=== PATIENT | female | born 1960 | race Two or more races ===

== ENCOUNTER 2021-06-01 13:55 | Emergency (ER) | payer OTHER, SELFPAY ==
[2021-06-01 14:48] VITALS: BP 147/99; PULSE 101; RESP 18; TEMP 36.6; O2SAT 97; BMI 21.7
--- NOTE | 2021-06-01 17:24 | ED.GENADULT ---
HPI - General Adult General Chief complaint: Abdominal Pain Stated complaint: abd pain Time Seen by Provider: 06/01/21 17:05 Source: patient Mode of arrival: ambulatory Limitations: no limitations History of Present Illness HPI narrative: 60 y/o female presenting to the ER with 3 days of increased gas. She reports increased belching and rectal flatulance. She has a history of similar episodes or flares of this and was given a prescription for a purple pill that helped her. She has taken Pepto-Bismol with some improvement. She has not been taking it consistently. She also reports increased abdominal bloating and early satiety. She has occasional cramping but no abdominal pain, no nausea, no vomiting, no diarrhea. She had normal bowel movement today and yesterday. No blood in her stool. She has never had a colonoscopy. She also suffers from constipation however has been having normal bowel movements. She cannot recall any new foods. She states she has not been eating much because of the gas and bloating. MD complaint: Excessive abdominal gas Onset (ago): day(s) (3) Location: abdomen Radiation: non-radiation Severity: moderate Quality: other (Fullness) Pain Consistency: intermittent Relieving factors: none Exacerbating factors: eating Associated symptoms: loss of appetite Treatments prior to arrival: none Related Data Previous Rx's Medication Instructions Recorded simethicone 180 mg capsule (Gas 180 mg PO BID #30 cap 06/01/21 Relief (simethicone)) Allergies Allergy/AdvReac Type Severity Reaction Status Date / Time No Known Allergies Allergy Verified 06/01/21 14:48 Review of Systems Review of Systems: Constitutional: No Fever, No Chills ENT/Mouth: No sore throat, No Swallowing Difficulty Cardiovascular: No Chest Pain, No SOB Respiratory: No Cough, No Sputum, No Wheezing, No dyspnea Gastrointestinal: No Nausea, No Vomiting, No Diarrhea, No abdominal Pain, No Hematochezia, No Melena, +early satiety, + abdominal bloating and gas Genitourinary: No Dysuria, No Urinary Frequency, No Hematuria Musculoskeletal: No joint pain, No Myalgias Skin: No Skin Lesions, No rash Neuro: No Weakness, No Numbness, No Dizziness, No Headache Psych: No Anxiety/Panic, No Depression Heme/Lymph: No Bruising, No Lymphadenopathy Endocrine: No Polyuria, No Polydipsia PMFSH Social History Social History Patient Tobacco Use Status: Never used Tobacco Use of substances other than those prescribed or required for medical reasons: No Advance Directives: No Advance Directives Information Provided: No Patient : No Physical Exam Vital Signs: Vital Signs: Last Vital Signs Temp 98.8 F 06/01/21 17:28 Pulse 99 06/01/21 17:28 Resp 16 06/01/21 17:28 BP 157/99 H 06/01/21 17:28 Pulse Ox 99 06/01/21 17:28 Body Mass Index 21.7 Appearance: Alert. Oriented X3. No acute distress. Eyes: Pupils equal, round and reactive to light. ENT: Pharynx normal. Neck: Normal inspection. Neck supple. CVS: Normal heart rate and rhythm. Pulses normal. Respiratory: No respiratory distress. Breath sounds normal. Abdomen: Soft and nontender. normal +BS x4, nondistneded. Skin: Skin warm and dry. Normal skin color. Normal skin turgor. No rashes. Extremities: No lower extremity edema. Neuro: Oriented X 3. No motor deficit. No sensory deficit. Course Course Course Narrative: Denied year old female with a history of gas and constipation comes to the ER with reports of excessive belching and rectal fluctuance for the last 3 days. She has been taking Pepto-Bismol with brief improvement. Her abdominal exam is benign. No signs of obstruction. Her labs are unremarkable and her urine is negative for infection. At this time she is stable for discharge home with supportive care, will give a prescription for simethicone. Encouraged to take Pepto-Bismol as needed. Encourage follow-up with GI as she has never had a colonoscopy before. Patient expressed understanding and is agreeable with plan. Stable for [place] home Medical Decision Making Lab Data Result diagrams: 06/01/21 17:27 06/01/21 17:27 Labs: Lab Results 06/01/21 06/01/21 06/01/21 Range/Units 17:27 17:27 17:37 WBC 4.4 L (4.8-10.8) X10*3/uL RBC 4.99 (4.20-5.50) X10*6/uL Hgb 13.9 (12.0-16.0) g/dl Hct 43.6 (37.0-47.0) % MCV 87.4 (80.0-98.0) fL MCH 27.9 (27.0-33.0) pg MCHC 31.9 (31.0-35.0) g/dl RDW 13.2 (11.0-16.0) % Plt Count 270 (160-400) X10*3/uL MPV 9.3 L (9.4-12.3) fL Immature Gran % (Auto) 0.2 (0.0-0.4) % Neut % (Auto) 48.3 (45-73) % Lymph % (Auto) 38.6 (20-40) % [place] % (Auto) 12.4 H (2-11) % Eos % (Auto) 0.0 (0-4) % Baso % (Auto) 0.5 (0-2) % Lymph # (Auto) 1.7 (1.2-4.9) X10*3/uL [place] # (Auto) 0.5 (0.1-1.2) X10*3/uL Eos # (Auto) 0.0 (0.0-0.4) X10*3/uL Baso # (Auto) 0.0 (0.0-0.2) X10*3/uL Abs Immat Gran (auto) 0.01 (0.00-0.03) X10*3/uL Absolute Neuts (auto) 2.1 (2.0-8.3) x10*3/uL Absolute Nucleated RBC 0.000 (0.0-0.012) X10*3/uL Nucleated RBC % (auto) 0.0 (0.0-0.2) /100WBC Sodium 137 (135-145) mmol/L Potassium 3.9 (3.3-5.1) mmol/L Chloride 102 (96-108) mmol/L Carbon Dioxide 26 (22-29) mmol/L Anion Gap 13 (12-20) BUN 8 L (9-16) mg/dL Creatinine 0.81 (0.5-1.4) mg/dL Estim Creat Clear Calc 56.4 Estimated GFR > 60 Random Glucose 105 (60-115) mg/dL Calcium 9.1 (8.4-10.2) mg/dL Total Bilirubin 0.2 (0.0-1.0) mg/dL AST 39 H (5-31) U/L ALT 26 (0-31) U/L Alkaline Phosphatase 93 (39-117) U/L Total Protein 8.4 H (6.5-8.0) g/dL Albumin 4.3 (3.5-5.0) g/dL Lipase 32 (8-78) U/L Urine Color YELLOW Urine Appearance CLEAR Urine pH 6.0 (5.0-8.0) Ur Specific [place] >= 1.030 H (1.005-1.025) Urine Protein 1+ H (NEG-TRACE) MG/DL Urine Glucose (UA) NEG (NEG) MG/DL Urine Ketones 15 (NEG) MG/DL Urine Blood TRACE (NEG) Urine Nitrite NEG (NEG) Ur Leukocyte Esterase NEG (NEG) Urine RBC 1-4 (0) /HPF Urine WBC 0 (0-4) /HPF Ur Squamous Epith Cells TRACE /LPF Ur Renal Epithelial Cell TRACE /LPF Urine Bacteria TRACE /LPF Urine Mucus 1+ /LPF Critical Care Time Critical Care Time Critical Care Time: No Discharge Plan Discharge Clinical Impression: Excessive gas Patient Disposition: Home, Self-Care Instructions: Gas and Bloating (ED), How to Avoid and Decrease Problems with Gas (DC) Additional Instructions: Your labs and urine tests were unremarkable today. Recommend taking Pepto-Bismol 2 times a day for the next couple of days. Take the prescribed medication for gas and bloating. Recommend keeping a food diary to monitor if there is any correlation with your specific foods to your gas. Follow-up with your doctor. Recommend following up with GI doctor given you have never had a colonoscopy before. If you develop new or worsening symptoms call 911 or come back to the ER for further evaluation. Katya an?lisis de laboratorio y de orina no fueron notables hoy. Recomiende arnaud Pepto-Bismol 2 veces al d?a rodger los pr?ximos d?as. [place] el medicamento recetado para los gases y la hinchaz?n. Recomiende llevar un diario de alimentos para controlar si existe alguna correlaci?n entre katya alimentos espec?ficos y bryant gas. Marc un seguimiento con bryant m?dico. Recomiende realizar un seguimiento con un m?dico gastrointestinal, dado que nunca antes se díaz sometido a qasim colonoscopia. Si presenta s?ntomas nuevos o que empeoran, llame al 911 o regrese a la jona de emergencias para qasim evaluaci?n adicional. Prescriptions: New simethicone [Gas Relief (simethicone)] 180 mg capsule 180 mg PO BID Qty: 30 RF: 0 Print Language: Japanese
[2021-06-01 17:28] VITALS: BP 157/99; PULSE 99; RESP 16; TEMP 37.1; O2SAT 99
[2021-06-01 17:33] LABS: Basophils Percent Auto 0.5 % (0-2); Hematocrit 43.6 % (37.0-47.0); Hemoglobin 13.9 g/dl (12.0-16.0); Imm Gran Abs Auto 0.01 X10*3/uL (0.00-0.03); Imm Gran Pct Auto 0.2 % (0.0-0.4); Lymphocytes Absolute Auto 1.7 X10*3/uL (1.2-4.9); Lymphocytes Percent Auto 38.6 % (20-40); MANUAL DIFF FLAG NO; Mean Corpuscular HGB Conc 31.9 g/dl (31.0-35.0); Mean Corpuscular Hemoglobin 27.9 pg (27.0-33.0); Mean Corpuscular Volume 87.4 fL (80.0-98.0); Mean Platelet Volume 9.3 fL (9.4-12.3); Monocytes Absolute Auto 0.5 X10*3/uL (0.1-1.2); Monocytes Percent Auto 12.4 % (2-11); Neutrophils Absolute Auto 2.1 x10*3/uL (2.0-8.3); Neutrophils Percent Auto 48.3 % (45-73); Platelet Count 270 X10*3/uL (160-400); Red Blood Count 4.99 X10*6/uL (4.20-5.50); Red Cell Distribution Width 13.2 % (11.0-16.0); White Blood Count 4.4 X10*3/uL (4.8-10.8)
[2021-06-01 17:42] LABS: Appearance Urine CLEAR; Color Urine YELLOW; Glucose Urine UA NEG (NEG); Leukocyte Esterase Urine NEG (NEG); Nitrite Urine NEG (NEG); Specific Gravity - Urine >= 1.030 (1.005-1.025); UACC Culture Trigger NO; Urine Blood TRACE (NEG); Urine Ketones 15 MG/DL (NEG); Urine Protein 1+ MG/DL (NEG-TRACE)
[2021-06-01 17:48] LABS: Alanine Aminotransferase 26 U/L (0-31); Albumin Level 4.3 g/dL (3.5-5.0); Alkaline Phosphatase 93 U/L (39-117); Anion Gap 13 (12-20); Aspartate Amino Transferase 39 U/L (5-31); Bilirubin Total 0.2 mg/dL (0.0-1.0); Blood Urea Nitrogen 8 mg/dL (9-16); Calcium 9.1 mg/dL (8.4-10.2); Carbon Dioxide 26 mmol/L (22-29); Chloride 102 mmol/L (96-108); Creatinine Clr Calc Pharmacy 56.4; Estimated Glomerular Filt Rate > 60; Glucose Random 105 mg/dL (60-115); Lipase 32 U/L (8-78); Potassium 3.9 mmol/L (3.3-5.1); Sodium 137 mmol/L (135-145); Total Protein 8.4 g/dL (6.5-8.0)
[2021-06-01 17:49] LABS: Bacteria Urine TRACE /LPF; Mucus Urine 1+ /LPF; Renal Epithelial Cells Urine TRACE /LPF; Squamous Epithelial Cell Urine TRACE /LPF; WBC Urine 0 /HPF (0-4)
--- NOTE | 2021-06-01 17:50 | PC.NURSE ---
pt alert and oriented, vss, pt reports she has been having increased gas and abdominal discomfort x3 days. pt reports she feels constipated. no n/v. no change in voiding pattern, no change in eating pattern. no other complaints. + BS x4.
[2021-06-01] MEDS: Simethicone 80 MG TAB.CHEW 160 MG PO (18:17)
[2021-06-01] MEDS: Bismuth Subsalicylate 262 MG TABLET 524 MG PO (18:18)
[2021-06-01 18:21] VITALS: BP 158/89; PULSE 94; RESP 18; O2SAT 98
== END 2021-06-01 18:30 | disposition home or self-care (01) ==
PROVIDERS: Emergency Provider Internal Medicine
DX: R14.0 Abdominal distension (gaseous) (principal)
CPT/HCPCS: 36415; 80053; 81001; 83690; 85025; 99283; 99284

== ENCOUNTER 2023-09-29 14:05 | Emergency (ER) | payer OTHER, SELFPAY ==
--- NOTE | ~2023-09-29 | CT_ITS ---
EXAMINATION: CT ABDOMEN AND PELVIS WITH CONTRAST CLINICAL INFORMATION: Lower abdominal pain, rectal bleeding COMPARISON: None available. TECHNIQUE: Multidetector volumetric images were obtained from the superior aspect of the liver through the pubic symphysis following administration 85 mL of Omnipaque 350 intravenous contrast. Sagittal and coronal reformatted images were obtained on the technologist's workstation. Oral contrast: No This CT examination was performed using dose optimization techniques as appropriate, variously including the following: *Automated exposure control *Adjustment of mA and/or kV according to patient size (this includes techniques or standardized protocols for targeted exams where dose is matched to indication/reason for exam; i.e. extremities or head) *Use of iterative reconstruction technique DLP: 343 mGy-cm FINDINGS: LUNG BASES: The visualized lung bases are unremarkable. LIVER, GALLBLADDER, AND BILIARY TREE: The liver is normal in size, shape, and attenuation. No focal hepatic lesion or biliary ductal dilatation is present. The gallbladder is unremarkable with no evidence of radiopaque gallstones, gallbladder wall thickening, or obvious pericholecystic inflammatory changes. PANCREAS: Unremarkable. SPLEEN: Unremarkable. ADRENAL GLANDS: Unremarkable. KIDNEYS AND URETERS: Bilateral nephrograms are symmetric. No hydronephrosis or obstructing calculus identified. Tiny hypodensity in the left kidney favors a cyst; no follow-up recommended. BLADDER: Minimally distended with a diffusely thick-walled appearance. GASTROINTESTINAL TRACT: No evidence of bowel obstruction. Assessment for wall thickening in some segments of the colon is limited due to luminal collapse, though no significant pericolonic stranding is seen to strongly suggest a colitis. The appendix is unremarkable. No free fluid or free air is seen. ABDOMINAL WALL: No significant hernia is appreciated. LYMPH NODES: Normal. VASCULAR: Unremarkable. PELVIC VISCERA: Unremarkable. OSSEOUS STRUCTURES: Unremarkable. CT/CT abdomen pelvis w IV con IMPRESSION: 1. Diffusely thick-walled appearance of the urinary bladder, which could be due to underdistention versus cystitis in the proper clinical setting. Correlation with urinalysis is recommended. 2. No acute bowel abnormality identified. Of note, assessment for wall thickening in some segments of colon is limited due to luminal collapse, though no surrounding inflammation is seen to strongly suggest a colitis.
[2023-09-29 14:18] VITALS: BP 173/93; PULSE 109; RESP 17; TEMP 36.5; O2SAT 99; BMI 20.3
--- NOTE | 2023-09-29 14:19 | ED_ITS ---
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 Patient also reports that with the stool she has been noticing that there is bright red blood. Related Data Previous Rx's Medication Instructions Recorded simethicone 180 mg capsule (Gas 180 mg PO BID #30 caps 06/01/21 Relief (simethicone)) Allergies Allergy/AdvReac Type Severity Reaction Status Date / Time No Known Allergies Allergy Verified 06/01/21 14:48 Review of Systems 2 Review of Systems: Pertinent positives and negatives as stated in HPI COUNT INCLUDES THE [facility] Past Medical History Source: nursing notes reviewed Social History Social History Patient Tobacco Use Status: Never used Tobacco Smoked in Last 30 Days: No Use of substances other than those prescribed or required for medical reasons: No Advance Directives: No Advance Directives Information Provided: No Physical Exam ED Vital Signs: Vital Signs - 24 hr 09/29/23 14:18 09/29/23 21:22 09/29/23 23:17 Temperature 97.7 F 97.4 F 98.7 F Pulse Rate 109 H 109 H 99 Respiratory Rate 17 16 17 Blood Pressure 173/93 H 182/101 H 170/94 H Pulse Oximetry 99 98 98 Oxygen Delivery Method Room Air Room Air Room Air BMI result Body Mass Index 20.3 VITAL SIGNS: Reviewed. GENERAL: Well developed, well nourished, in no acute distress. HEAD: Normocephalic/atraumatic EYES: PERRLA, EOMI EARS: Ext canals without abnormality NOSE: Nares patent bilateral OROPHARYNX: no oral lesions noted, posterior pharynx clear NECK: Supple, no adenopathy LUNGS: Normal breath sounds. No adventitious sounds or accessory muscle use. SpO2<98> CARDIOVASCULAR: Regular rate and rhythm without noted murmurs ABDOMEN: Soft, non-tender, non-distended with bowel sounds. ANORECTAL: Noninflamed hemorrhoids, scant mucus material within the rectal vault, no bright red blood on finger, no melena, good rectal tone MUSCULOSKELETAL: No tenderness, deformities, or effusions noted on gross inspection. EXTREMITIES: No cyanosis, clubbing or edema. SKIN: Inspection of the skin reveals no rashes NEUROLOGIC: Alert and oriented x 4. Strength and sensation to light touch were grossly intact x 4. Course Course Course Narrative: RME performed by Sarah Castellano PA-C. Patient is a 62 year old assigned female at presenting to the emergency department with blood in her stools. Detailed physical exam and review of systems are deferred to the contract management specialist. Labs ordered. Patient placed back in the waiting room pending room availability and results. Medications Administered Discontinued Medications Generic Name Dose Route Start Last Admin Trade Name Freq PRN Reason Stop Dose Admin Iohexol 85 ml 09/30/23 00:47 09/30/23 00:47 Iohexol 350 Mg/Ml 100 Ml Infus..Btl IV 09/30/23 00:48 85 ml ONCE ONE Administration Medical Decision Making Medical Decision Making [facility] Narrative: 62-year-old female with history and clinical presentation, DDX: Constipation, intra-abdominal mass, urinary tract infection I reviewed all investigations and hematologic indices are negative for leukocytosis/left shift/thrombocytopenia/anemia. Coagulation studies are within normal limits. Chemistry indices are negative for SYLWIA/electrolyte or liver enzyme derangements. Urinalysis negative for UTI and CT scan does not demonstrate any acute intra-abdominal pathology, guaiac was noted to be positive. Patient is otherwise discharged to home with strict instructions to follow-up with a primary care doctor and will also be provided with a referral to Gastroenterology for suspected hemorrhoidal bleeding. She is otherwise hemodynamically stable. Differential Diagnosis Differential Diagnoses: The differential diagnosis associated with the presentation includes Please see the discussion above Admission/Observation Consideration of admission/observation: Escalation of care including admission/observation considered Please see the discussion above Lab Data [facility] Lab Attestation statement: I reviewed the patient's lab results. Please see the discussion above 09/29/23 15:04 09/29/23 15:04 Labs: Lab Results 09/29/23 09/30/23 Range/Units 15:04 00:00 WBC 8.5 (4.8-10.8) X10*3/uL RBC 4.50 (4.20-5.50) X10*6/uL Hgb 12.7 (12.0-16.0) g/dl Hct 38.5 (37.0-47.0) % MCV 85.6 (80.0-98.0) fL MCH 28.2 (27.0-33.0) pg MCHC 33.0 (31.0-35.0) g/dl RDW 13.0 (11.0-16.0) % Plt Count 322 (160-400) X10*3/uL MPV 9.4 (9.4-12.3) fL Immature Gran % (Auto) 0.4 (0.0-0.4) % Neut % (Auto) 71.6 (45-73) % Lymph % (Auto) 20.8 (20-40) % [place] % (Auto) 6.4 (2-11) % Eos % (Auto) 0.4 (0-4) % Baso % (Auto) 0.4 (0-2) % Lymph # (Auto) 1.8 (1.2-4.9) X10*3/uL [place] # (Auto) 0.6 (0.1-1.2) X10*3/uL Eos # (Auto) 0.0 (0.0-0.4) X10*3/uL Baso # (Auto) 0.0 (0.0-0.2) X10*3/uL Abs Immat Gran (auto) 0.03 (0.00-0.03) X10*3/uL Absolute Neuts (auto) 6.1 (2.0-8.3) x10*3/uL Absolute Nucleated RBC 0.000 (0.0-0.012) X10*3/uL Nucleated RBC % (auto) 0.0 (0.0-0.2) /100WBC PT 12.9 (11.1-13.3) SEC INR 1.1 (0.9-1.1) APTT 30.0 (26.0-36.8) SEC Sodium 140 (135-145) mmol/L Potassium 3.5 (3.3-5.1) mmol/L Chloride 105 (96-108) mmol/L Carbon Dioxide 26 (22-29) mmol/L Anion Gap 13 (12-20) BUN 14 (9-16) mg/dL Creatinine 0.76 (0.5-1.4) mg/dL Estim Creat Clear Calc 61.5 Estimated GFR > 60 Random Glucose 97 (60-115) mg/dL Calcium 9.7 D (8.4-10.2) mg/dL Magnesium 2.0 (1.6-2.6) mg/dL Total Bilirubin 0.4 (0.0-1.0) mg/dL AST 17 (5-31) U/L ALT 12 (0-31) U/L Alkaline Phosphatase 104 (39-117) U/L Total Protein 8.5 H (6.5-8.0) g/dL Albumin 4.4 (3.5-5.0) g/dL Urine Color Yellow Urine Appearance Clear Urine pH 5.5 (5.0-9.0) Ur Specific [place] >= 1.030 H (1.005-1.025) Urine Protein Trace (Neg-Trace) mg/dL Urine Glucose (UA) Negative (Negative) mg/dL Urine Ketones 15 (Negative) mg/dL Urine Blood Small (1+) H (Negative) Urine Nitrite Negative (Negative) Ur Leukocyte Esterase Negative (Negative) Urine RBC 3-5 H (0-2) /HPF Urine WBC 0-5 (0-5) /HPF Ur Squamous Epith Cells 0-2 (0-2) /HPF Urine Bacteria None Seen (None Seen) Hyaline Casts 0-2 (0-2) /LPF Stool Occult Blood POSITIVE (NEGATIVE) Radiology Impression Discussion of test interpretation with radiology: I have reviewed the radiologist's reading. Radiologist Impression: Please see the discussion above External Record Review External record reviewed: Outpatient record and Prior outpatient labs Critical Care Time Critical Care Time Critical Care Time: Yes Total Critical Care Time: 30 Attestation: I personally attest to this time spent taking care of the patient. Discharge Plan Discharge Clinical Impression: Bleeding hemorrhoids Patient Disposition: Home, Self-Care Instructions: Gastritis (ED), Hemorrhoids (ED), Diet for Stomach Ulcers and Gastritis (ED) Additional Instructions: Please follow-up with your primary care doctor. Prescriptions: No Action simethicone [Gas Relief (simethicone)] 180 mg capsule 180 mg PO BID Qty: 30 0RF Rx Instructions: after meals Referrals: David Andres MD [Physician] - Print Language: Nicaraguan
[2023-09-29 15:09] LABS: MANUAL DIFF FLAG NO
[2023-09-29 15:15] LABS: Appearance Urine Clear; Basophils Percent Auto 0.4 % (0-2); Color Urine Yellow; Eosinophils Percent Auto 0.4 % (0-4); Glucose Urine UA Negative (Negative); Hematocrit 38.5 % (37.0-47.0); Hemoglobin 12.7 g/dl (12.0-16.0); Imm Gran Abs Auto 0.03 X10*3/uL (0.00-0.03); Imm Gran Pct Auto 0.4 % (0.0-0.4); Leukocyte Esterase Urine Negative (Negative); Lymphocytes Absolute Auto 1.8 X10*3/uL (1.2-4.9); Lymphocytes Percent Auto 20.8 % (20-40); Mean Corpuscular Hemoglobin 28.2 pg (27.0-33.0); Mean Corpuscular Volume 85.6 fL (80.0-98.0); Mean Platelet Volume 9.4 fL (9.4-12.3); Monocytes Absolute Auto 0.6 X10*3/uL (0.1-1.2); Monocytes Percent Auto 6.4 % (2-11); Neutrophils Absolute Auto 6.1 x10*3/uL (2.0-8.3); Neutrophils Percent Auto 71.6 % (45-73); Nitrite Urine Negative (Negative); PH 5.5 (5.0-9.0); Platelet Count 322 X10*3/uL (160-400); Specific Gravity - Urine >= 1.030 (1.005-1.025); UMIC TRIGGER UACC YES; Urine Blood Small (1+) (Negative); Urine Ketones 15 mg/dL (Negative); Urine Protein Trace mg/dL (Neg-Trace); White Blood Count 8.5 X10*3/uL (4.8-10.8)
[2023-09-29 15:28] LABS: Alanine Aminotransferase 12 U/L (0-31); Albumin Level 4.4 g/dL (3.5-5.0); Alkaline Phosphatase 104 U/L (39-117); Anion Gap 13 (12-20); Aspartate Amino Transferase 17 U/L (5-31); Bacteria Urine None Seen (None Seen); Bilirubin Total 0.4 mg/dL (0.0-1.0); Blood Urea Nitrogen 14 mg/dL (9-16); Calcium 9.7 mg/dL (8.4-10.2); Carbon Dioxide 26 mmol/L (22-29); Chloride 105 mmol/L (96-108); Creatinine Clr Calc Pharmacy 61.5; Estimated Glomerular Filt Rate > 60; Glucose Random 97 mg/dL (60-115); Hyaline Casts Urine 0-2 /LPF (0-2); Potassium 3.5 mmol/L (3.3-5.1); Sodium 140 mmol/L (135-145); Squamous Epithelial Cell Urine 0-2 /HPF (0-2); Total Protein 8.5 g/dL (6.5-8.0); WBC Urine 0-5 /HPF (0-5)
[2023-09-29 18:28] LABS: INTERNATIONAL NORM RATIO 1.1 (0.9-1.1); Prothrombin Time 12.9 SEC (11.1-13.3)
[2023-09-29 21:22] VITALS: BP 182/101; PULSE 109; RESP 16; TEMP 36.3; O2SAT 98
[2023-09-29 23:17] VITALS: BP 170/94; PULSE 99; RESP 17; TEMP 37.1; O2SAT 98
--- NOTE | 2023-09-29 23:21 | PC.NURSE ---
this rn assumed care of pt, pt a&ox4, respirations even and unlabored, daughter in room. pt reporting intermittent abdominal pain with intermittent bloody stools. pt abdomen soft non tender to touch. pt denies pain at this time. pt denies n/v/d and chest pain.
--- NOTE | 2023-09-30 00:04 | PC.NURSE ---
this rn at bedside with , rectal exam preformed, stool OBX obtained and sent to lab. pt tolerated well.
[2023-09-30 00:09] LABS: OBS Int Ctl Valid YES; OBS1 POSITIVE (NEGATIVE)
--- NOTE | 2023-09-30 00:28 | PC.NURSE ---
iv access obtained at this time, 20G placed in right AC, pt to CT at this time.
[2023-09-30] MEDS: iohexoL 350 MG/ML 100 ML INFUS..BTL 85 ML IV (00:47)
[2023-09-30] MEDS: Famotidine 20 MG TABLET PO (02:26)
[2023-09-30 02:28] VITALS: BP 140/89; PULSE 101; RESP 18; TEMP 36.5; O2SAT 98
== END 2023-09-30 02:32 | disposition home or self-care (01) ==
PROVIDERS: Physician Assistant Medical; Emergency Provider Student in an Organized Health Care Education/Training Program
DX: K64.9 Unspecified hemorrhoids (principal); R10.30 Lower abdominal pain, unspecified
CPT/HCPCS: 36415; 74177; 80053; 81001; 82272; 83735; 85025; 85610; 85730; 99284; Q9967